=== PATIENT | female | born 1975 | race African-American/Black ===

== ENCOUNTER 2019-03-02 08:46 | Emergency (ER) | payer SELFPAY ==
[~2019-03-02] VITALS: Ht 175.3 cm; Wt 66.4 kg
[2019-03-02 10:37] VITALS: BP 126/82
== END 2019-03-02 10:40 | disposition home or self-care (01) ==
LOC: ED 10:20
DX: I10 Essential (primary) hypertension (principal); F17.200 Nicotine dependence, unspecified, uncomplicated
CPT/HCPCS: 99281

== ENCOUNTER 2019-07-25 19:35 | Emergency (ER) | payer SELFPAY ==
[~2019-07-25] VITALS: Ht 175.3 cm; Wt 66.6 kg
[2019-07-25 19:48] VITALS: BP 152/105
== END 2019-07-25 20:08 | disposition home or self-care (01) ==
LOC: ED 20:02 → EDBD 20:08
DX: K02.9 Dental caries, unspecified (principal); I10 Essential (primary) hypertension
CPT/HCPCS: 99283